=== PATIENT | female | born 1960 | race African-American/Black ===

== ENCOUNTER 2016-11-02 09:32 | Observation (INO) ==
[2016-11-02] MEDS ORDERED: ASPIRIN PO STA (09:37)
[2016-11-02 09:51] LABS: MANUAL DIFF NEEDED? NO
[2016-11-02 09:57] LABS: BASO% 0.4 % (0.0-0.8); EOS# 0.07 X1000 (0.0-0.7); EOS% 0.7 % (0.0-10.0); HEMATOCRIT 43.5 % (37.0-47.0); HEMOGLOBIN 14.8 g/dL (12.0-16.0); IMM GRAN# 0.01 X1000 (0.0-0.04); IMM GRAN% 0.1 % (0.0-0.5); LYMPH# 2.85 X1000 (1.2-3.4); LYMPH% 27.8 % (20.5-51.1); MCV 88.2 FL (81-99); MONO# 0.89 X1000 (0.11-0.59); MONO% 8.7 % (1.7-9.3); NEUT% 62.3 % (42.2-75.2); PLT 404 X1000 (130-400); RBC 4.93 XMIL (4.2-5.4)
--- NOTE | 2016-11-02 10:02 | EKG Report ---
Test Performed on : 11/02/2016 09:43:27 AM Test Reason : SYNCOPE Blood Pressure : / mmHG Vent. Rate : 068 BPM Atrial Rate : 068 BPM P-R Int : 162 ms QRS Dur : 082 ms QT Int : 408 ms P-R-T Axes : 068 052 042 degrees QTc Int : 433 ms Normal sinus rhythm. Possible Left atrial enlargement Borderline ECG No previous ECGs available Unconfirmed Result
--- NOTE | 2016-11-02 10:04 | Diag Imaging Result Doc PS360 ---
EXAM: CHEST-2 VIEWS HISTORY: Chest pain COMMENT: There is no evidence of acute cardiac or pulmonary disease. No previous studies are available for comparison. There is a small calcified granuloma in the lateral left lower lobe. IMPRESSION: No acute abnormality. Electronically signed by Francis Gonzalez 11/02/2016 10:01 AM
[2016-11-02 10:13] LABS: INR 0.91 (0.86-1.15); PROTIME 12.6 Seconds (12.1-15.5)
[2016-11-02 10:14] LABS: PTT PL 27.5 Seconds (22.6-43.9)
[2016-11-02 10:17] LABS: AGAP 14; ALBUMIN 4.3 g/dL (3.5-5.0); ALKALINE PHOSPHATASE 104 U/L (32-104); BUN 9 mg/dL (8-22); CALCIUM 9.9 mg/dL (8.8-10.2); CHLORIDE 94 mmol/L (98-107); CK PROFILE 76 U/L (24-173); COSMO 280; GOT 18 U/L (10-30); GPT 12 U/L (10-36); MAGNESIUM 2.3 mg/dL (1.5-2.7); POTASSIUM 3.4 mmol/L (3.5-5.1); SODIUM 134 mmol/L (136-145); TCO2 26 mmol/L (25-35); TOTAL PROTEIN 8.3 g/dL (6.3-8.3)
--- NOTE | 2016-11-02 11:11 | PROVIDER DOCUMENTATION ---
This chart was entered by Hamzah Rosas Scribe, acting as scribe for Juan Luis Arellano MD. HPI-Syncope/Dizziness - General Chief Complaint: Syncope Time Seen by Provider: 11/02/16 09:49 Source: patient Allergies/Adverse Reactions: Patient Allergies Allergy/AdvReac Type Severity Reaction Status Date / Time acetaminophen [From Lortab] Allergy ITCHING Verified 11/02/16 09:36 hydrocodone bitartrate * Allergy ITCHING Verified 11/02/16 09:36 [From Lortab] hydrocortisone Allergy RASH Verified 11/02/16 09:36 morphine Allergy RASH Verified 11/02/16 09:36 Penicillins Allergy SHORTNESS Verified 11/02/16 09:36 OF BREATH Sulfa (Sulfonamide Allergy RASH Verified 11/02/16 09:36 Antibiotics) Home Medications: Home Medication List Medication Instructions Recorded Confirmed Last Taken Type Metformin [Glucophage] 1,000 mg PO BID 07/22/14 11/02/16 09/07/16 20:00 History SIMVAstatin [Zocor] 20 mg PO DAILY 07/22/14 11/02/16 09/07/16 20:00 History Buspirone [Buspar] 7.5 mg PO BID 09/02/16 11/02/16 09/07/16 08:00 History Esomeprazole [Nexium] 20 mg PO DAILY 09/02/16 11/02/16 09/07/16 08:00 History Hydrochlorothiazide 25 mg PO DAILY 09/02/16 11/02/16 09/07/16 08:00 History Insulin Aspart [Novolog] 1 unit SQ DIRECTED 09/02/16 11/02/16 09/07/16 History Insulin Degludec [Tresiba 30 unit SQ QHS 09/02/16 11/02/16 09/06/16 History Flextouch U-100] Amlodipine Besylate 10 mg PO DAILY 09/08/16 11/02/16 09/07/16 20:00 History Losartan Potassium 100 mg PO DAILY 09/08/16 11/02/16 09/07/16 08:00 History Potassium Chloride E.r. [Klor-Con] 10 meq PO DAILY 09/08/16 11/02/16 09/07/16 08 :00 History - History of Present Illness-Syncope/Dizzy Nature of Presenting Problem: patient is a 55 y/o F that presents to the ER with syncope. Patient was in supply room at work when she got lightheaded and passed out. She reports now feeling her normal. She denies chest pain or palpitations. Reports similar symptoms in past due to elevated Blood sugar. She did eat her normal breakfast this am. If witnessed syncope, by whom?: co-worker Prior Episodes: reports: single episode today Onset/Duration: reports: abrupt, just prior to arrival Timing: reports: gone now Position/Activity at time of episode: reports: standing Symptoms prior to episode: reports: lightheaded. denies: chest pain, racing heart, abdominal pain, diaphoresis, recent head trauma, rapid heart beat Context: reports: lost consciousness, became unresponsive Loss of Consciousness: brief (seconds) Location of injury. (If syncope resulted in an injury.): reports: none Current Symptoms: reports: none/feels normal Similar symptoms previously: reports: workup for same problem Recently Seen Here or By Another Healthcare Provider: No Review of Systems - Adult - REVIEW OF SYSTEMS - ADULT Constitutional: denies: chills, fever, fatique Eyes: reports: no symptoms reported Ears, Nose, Mouth & Throat: reports: no symptoms reported Cardiovascular: reports: syncope. denies: chest pain, orthopnea, palpitations Respiratory: denies: cough, shortness of breath, wheezing Gastrointestinal: denies: abdominal pain, nausea, vomiting Genitourinary: reports: no symptoms reported Musculoskeletal: denies: back pain, joint pain, neck pain Integumentary: reports: no symptoms reported Neurological: reports: dizziness/vertigo, syncope. denies: headache/migraines, seizure Psychiatric: reports: no symptoms reported Endocrine: reports: no symptoms reported Hematologic/Lymphatic: reports: no symptoms reported Allergic/Immunologic: reports: no symptoms reported All Other Systems: Reviewed and Negative Past History - Adult - PAST MEDICAL HISTORY-ADULT Review of Records: reports: Old Records Reviewed, Nursing Assessment Review, Medications Reviewed Cardiovascular: reports: HTN, hyperlipidemia Gastrointestinal: reports: GERD Endocrine/Immune: reports: Diabetes - PRIOR SURGERIES/PROCEDURES Surgical/Procedure History: reports: hysterectomy, orthopedic (extremity) - IMMUNIZATION STATUS Childhood Immunizations: See Nurse Assessment Flu Vaccine: UTD - FAMILY HISTORY Family History: reviewed, not pertinent - SOCIAL HISTORY Smoking: cigarettes, less than 1 pack/day Living Situation: family Physical Exam-General - PHYSICAL EXAM-ADULT Initial Vital Signs Reviewed: Yes - CONSTITUTIONAL General Appearance: alert, no apparent distress - EYES Eyes: PERRL/EOMI, pink conjunctivae - HEAD, EARS, NOSE, MOUTH & THROAT HENMT: normocephalic/atraumatic, moist mucous membranes, normal ENT inspection, pharynx normal - NECK Neck: full range of motion, normal inspection - RESPIRATORY Respiratory: lungs clear, normal breath sounds, no respiratory distress, no accessory muscle use - CARDIOVASCULAR Cardiovascular: regular rate, rhythm, no edema, no murmur - GASTROINTESTINAL (ABDOMEN) Abdominal Exam: normal bowel sounds, non tender, soft, no organomegaly, no pulsatile mass - MUSCULOSKELETAL Back Exam: normal inspection, no CVA tenderness Extremity: normal range of motion, normal inspection, no pedal edema - SKIN Integumentary: normal color, warm/dry - NEUROLOGIC 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, no motor/sensory deficits - PSYCHIATRIC Psych/Mental Status: normal mood/affect, normal thought content, normal thought process, oriented x 3 Progress - PLAN OF CARE/RESULTS Progress/Plan/Lab Results: Vital Signs - 8 hr 11/02/16 09:33 11/02/16 10:55 Temperature 97.8 F Pulse Rate 74 Pulse Rate [Sitting] 89 Pulse Rate [Standing] 91 H Pulse Rate [Supine] 87 Respiratory Rate 15 Blood Pressure 178/75 Blood Pressure [Sitting] 125/75 Blood Pressure [Standing] 123/73 Blood Pressure [Supine] 130/79 O2 Sat by Pulse Oximetry 100 Laboratory Results - last 24 hr 11/02/16 11/02/16 11/02/16 09:50 09:50 09:50 WBC RBC Hgb Hct MCV MCH MCHC RDW Std Deviation Plt Count MPV Immature Gran % (Auto) Neut % (Auto) Lymph % (Auto) [place] % (Auto) Eos % (Auto) Baso % (Auto) Immature Gran # (Auto) Neut # (Auto) Lymph # (Auto) [place] # (Auto) Eos # (Auto) Baso # (Auto) PT INR APTT (Factor Assay) D-Dimer Sodium 134 L Potassium 3.4 L Chloride 94 L Carbon Dioxide 26 Anion Gap 14 BUN 9 Creatinine 0.8 Estimated GFR/1.73 m2 > 60 BUN/Creatinine Ratio 11 Glucose 335 H Calculated Osmolality 280 Calcium 9.9 Magnesium 2.3 Total Bilirubin 0.30 AST 18 ALT 12 Alkaline Phosphatase 104 Creatine Kinase 76 Troponin T < 0.010 Fko-B-Kkqdzmsvuoo Pept 13 Total Protein 8.3 Albumin 4.3 Globulin 4.0 Albumin/Globulin Ratio 1.0 11/02/16 11/02/16 09:50 09:50 WBC 10.26 RBC 4.93 Hgb 14.8 Hct 43.5 MCV 88.2 MCH 30.0 MCHC 34.0 RDW Std Deviation 13.0 Plt Count 404 H MPV 9.0 Immature Gran % (Auto) 0.1 Neut % (Auto) 62.3 Lymph % (Auto) 27.8 [place] % (Auto) 8.7 Eos % (Auto) 0.7 Baso % (Auto) 0.4 Immature Gran # (Auto) 0.01 Neut # (Auto) 6.40 Lymph # (Auto) 2.85 [place] # (Auto) 0.89 H Eos # (Auto) 0.07 Baso # (Auto) 0.04 PT 12.6 INR 0.91 APTT (Factor Assay) 27.5 D-Dimer 0.30 Sodium Potassium Chloride Carbon Dioxide Anion Gap BUN Creatinine Estimated GFR/1.73 m2 BUN/Creatinine Ratio Glucose Calculated Osmolality Calcium Magnesium Total Bilirubin AST ALT Alkaline Phosphatase Creatine Kinase Troponin T Xgj-L-Zxfbnztrsji Pept Total Protein Albumin Globulin Albumin/Globulin Ratio Orders Category Date Time Status Cardiac Monitoring DIRECTED Care 11/02/16 09:38 Active ED: Orthostatic Vital Signs (E as directed Care 11/02/16 10:17 Active Oxygen Therapy- ED Nursing DIRECTED Care 11/02/16 09:38 Active Saline Loc NOW Care 11/02/16 09:38 Active CHEST-2 VIEWS [RAD] Stat Exams 11/02/16 09:38 Completed CBC WITH ELECTRONIC DIFF [HEME] Stat Lab 11/02/16 09:50 Completed CK PROFILE [SP CHEM] Stat Lab 11/02/16 09:50 Completed COMPREHENSIVE METABOLIC PANEL [CHEM] Stat Lab 11/02/16 09:50 Completed D-DIMER PL [COAG] Stat Lab 11/02/16 09:50 Completed MAGNESIUM [CHEM] Stat Lab 11/02/16 09:50 Completed PRO B-NATRIURETIC PEPTIDE Stat Lab 11/02/16 09:50 Completed PROTIME WITH INR PL [COAG] Stat Lab 11/02/16 09:[address] [COAG] Stat Lab 11/02/16 09:50 Completed TROPONIN T Stat Lab 11/02/16 09:50 Completed Aspirin Med 11/02/16 09:37 Discontinued 325 mg PO STAT STA EKG [EKG] Stat Ther 11/02/16 09:38 Draft Result Diagrams: 11/02/16 09:50 11/02/16 09:50 - REASSESSMENT Reassessment #1 Time Reassessed: 11:07 (no sx now) Status: improving - EKG 1 Time of EKG reading by physician:: 09:43 EKG Read and Signed by:: Juan Luis Arellano EKG Interpretation (*Must complete 3 of following elements*): Abnormal Rate: 68 Rhythm: NSR [place]: normal MS Interval: normal ST Wave: normal Comments: LAE - XRAY 1 XRAY Study: Chest Impression: Normal XRAY Interpretation: NAD Departure - Departure Time of Disposition Decision: 11:09 DIAGNOSIS: Hyperglycemia due to type 1 diabetes mellitus Syncope Qualifiers: Syncope type: unspecified Qualified Code(s): R55 - Syncope and collapse Disposition: HOME 01 Certified Medical Emergency: Emergent Condition: Fair Additional Freetext Instructions: ED Follow Up Instructions: You have been treated by a care provider in the Emergency Department. These instructions are being provided to you so you can have an understanding of how to care for yourself upon discharge. Upon discharge from the Emergency Department, you are responsible for making arrangements for follow-up care by a physician of your choice. Take all prescribed medications as directed. Return to the Emergency Department immediately for any new or worsening symptoms. You may call the Physician Referral phone number at [phone] to obtain a list of Physicians who are taking new patients. Discharge Education: Syncope - Critical Care Note This patient required my direct & personal management of CC.: No This chart was documented by the indicated scribe, (Hamzah Rosas, Elliibe) and accurately reflects the services I performed and decisions made by me, Juan Luis Arellano MD, as attested by the provider's signature.
[2016-11-02] MEDS ORDERED: NS 1,000 ML IV ONE (11:59)
--- NOTE | 2016-11-02 13:07 | Diag Imaging Result Doc PS360 ---
HEAD W/O CONTRAST - 11/02/2016 INDICATION: Syncope COMPARISON: None FINDINGS: The ventricles and sulci are normal in size and contour. No intracranial mass or hemorrhage. The skull is intact. The sinuses mastoids and middle ears are clear. IMPRESSION: Negative exam. Electronically signed by Bud Apodaca 11/02/2016 1:04 PM
[2016-11-02] MEDS ORDERED: NS 1,000 ML ONE ×2 (14:00)
--- NOTE | 2016-11-02 14:03 | PROVIDER DOCUMENTATION ---
This chart was entered by Hamzah Rosas Scribe, acting as scribe for Juan Luis Arellano MD. HPI-Syncope/Dizziness - General Chief Complaint: Syncope Time Seen by Provider: 11/02/16 09:49 Source: patient Allergies/Adverse Reactions: Patient Allergies Allergy/AdvReac Type Severity Reaction Status Date / Time acetaminophen [From Lortab] Allergy ITCHING Verified 11/02/16 09:36 hydrocodone bitartrate * Allergy ITCHING Verified 11/02/16 09:36 [From Lortab] hydrocortisone Allergy RASH Verified 11/02/16 09:36 morphine Allergy RASH Verified 11/02/16 09:36 Penicillins Allergy SHORTNESS Verified 11/02/16 09:36 OF BREATH Sulfa (Sulfonamide Allergy RASH Verified 11/02/16 09:36 Antibiotics) Home Medications: Home Medication List Medication Instructions Recorded Confirmed Last Taken Type Metformin [Glucophage] 1,000 mg PO BID 07/22/14 11/02/16 09/07/16 20:00 History SIMVAstatin [Zocor] 20 mg PO DAILY 07/22/14 11/02/16 09/07/16 20:00 History Buspirone [Buspar] 7.5 mg PO BID 09/02/16 11/02/16 09/07/16 08:00 History Esomeprazole [Nexium] 20 mg PO DAILY 09/02/16 11/02/16 09/07/16 08:00 History Hydrochlorothiazide 25 mg PO DAILY 09/02/16 11/02/16 09/07/16 08:00 History Insulin Aspart [Novolog] 1 unit SQ DIRECTED 09/02/16 11/02/16 09/07/16 History Insulin Degludec [Tresiba 30 unit SQ QHS 09/02/16 11/02/16 09/06/16 History Flextouch U-100] Amlodipine Besylate 10 mg PO DAILY 09/08/16 11/02/16 09/07/16 20:00 History Losartan Potassium 100 mg PO DAILY 09/08/16 11/02/16 09/07/16 08:00 History Potassium Chloride E.r. [Klor-Con] 10 meq PO DAILY 09/08/16 11/02/16 09/07/16 08 :00 History - History of Present Illness-Syncope/Dizzy Nature of Presenting Problem: patient was d/c from Er, She was in the bathroom when she began to jerk in the arms and body. She went to open door and was in floor. patient had syncopal episode this am. Denies chest pain with both episodes or palpitations. Prior Episodes: reports: multiple episodes today Onset/Duration: reports: abrupt, just prior to arrival Timing: reports: gone now Position/Activity at time of episode: reports: activity Symptoms prior to episode: reports: lightheaded, other (jerky) Context: reports: lost consciousness Loss of Consciousness: brief (seconds) Location of injury. (If syncope resulted in an injury.): reports: none Current Symptoms: reports: none/feels normal Similar symptoms previously: reports: previous diagnosis, tests, workup for same problem Recently Seen Here or By Another Healthcare Provider: Yes (just d/c from the ER) Review of Systems - Adult - REVIEW OF SYSTEMS - ADULT Constitutional: denies: chills, fever Eyes: denies: decreased vision, blurred vision, double vision Ears, Nose, Mouth & Throat: denies: ear pain, sinus problem, throat pain, throat swelling Cardiovascular: reports: syncope. denies: chest pain, palpitations Respiratory: denies: shortness of breath Gastrointestinal: denies: abdominal pain, diarrhea, nausea, vomiting Genitourinary: denies: dysuria, frequency, hematuria, incontinence Musculoskeletal: denies: back pain, joint pain, neck pain Integumentary: reports: no symptoms reported Neurological: reports: dizziness/vertigo, syncope, tremors. denies: headache/ migraines Psychiatric: reports: no symptoms reported Endocrine: reports: no symptoms reported Hematologic/Lymphatic: reports: no symptoms reported Allergic/Immunologic: reports: no symptoms reported All Other Systems: Reviewed and Negative Past History - Adult - PAST MEDICAL HISTORY-ADULT Review of Records: reports: Old Records Reviewed, Nursing Assessment Review, Medications Reviewed Cardiovascular: reports: HTN, hyperlipidemia Gastrointestinal: reports: GERD Endocrine/Immune: reports: Diabetes - PRIOR SURGERIES/PROCEDURES Surgical/Procedure History: reports: hysterectomy, orthopedic (extremity) - IMMUNIZATION STATUS Childhood Immunizations: See Nurse Assessment Flu Vaccine: UTD - FAMILY HISTORY Family History: reviewed, not pertinent - SOCIAL HISTORY Smoking: cigarettes, less than 1 pack/day Living Situation: family Physical Exam-General - PHYSICAL EXAM-ADULT Initial Vital Signs Reviewed: Yes - CONSTITUTIONAL General Appearance: alert, no apparent distress, anxious - EYES Eyes: PERRL/EOMI, pink conjunctivae - HEAD, EARS, NOSE, MOUTH & THROAT HENMT: normocephalic/atraumatic, moist mucous membranes, normal ENT inspection - NECK Neck: full range of motion, normal inspection - RESPIRATORY Respiratory: chest non-tender, lungs clear, normal breath sounds, no respiratory distress, no accessory muscle use - CARDIOVASCULAR Cardiovascular: normal peripheral pulses, regular rate, rhythm, no murmur - GASTROINTESTINAL (ABDOMEN) Abdominal Exam: normal bowel sounds, non tender, soft, no organomegaly, no pulsatile mass - MUSCULOSKELETAL Extremity: normal range of motion, normal inspection, no calf tenderness, normal capillary refill, pelvis stable - SKIN Integumentary: normal color, normal turgor, warm/dry - NEUROLOGIC 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, no motor/sensory deficits - PSYCHIATRIC Psych/Mental Status: normal thought process, oriented x 3, anxious Progress - PLAN OF CARE/RESULTS Progress/Plan/Lab Results: Vital Signs - 8 hr 11/02/16 09:33 11/02/16 10:55 11/02/16 11:24 Temperature 97.8 F 97.8 F Pulse Rate 74 87 Pulse Rate [Sitting] 89 Pulse Rate [Standing] 91 H Pulse Rate [Supine] 87 Respiratory Rate 15 19 Blood Pressure 178/75 124/73 Blood Pressure [Sitting] 125/75 Blood Pressure [Standing] 123/73 Blood Pressure [Supine] 130/79 O2 Sat by Pulse Oximetry 100 99 Laboratory Results - last 24 hr 11/02/16 11/02/16 11/02/16 09:50 09:50 09:50 WBC RBC Hgb Hct MCV MCH MCHC RDW Std Deviation Plt Count MPV Immature Gran % (Auto) Neut % (Auto) Lymph % (Auto) [place] % (Auto) Eos % (Auto) Baso % (Auto) Immature Gran # (Auto) Neut # (Auto) Lymph # (Auto) [place] # (Auto) Eos # (Auto) Baso # (Auto) PT INR APTT (Factor Assay) D-Dimer Sodium 134 L Potassium 3.4 L Chloride 94 L Carbon Dioxide 26 Anion Gap 14 BUN 9 Creatinine 0.8 Estimated GFR/1.73 m2 > 60 BUN/Creatinine Ratio 11 Glucose 335 H Calculated Osmolality 280 Calcium 9.9 Magnesium 2.3 Total Bilirubin 0.30 AST 18 ALT 12 Alkaline Phosphatase 104 Creatine Kinase 76 Troponin T < 0.010 Cix-V-Klzgypihexb Pept 13 Total Protein 8.3 Albumin 4.3 Globulin 4.0 Albumin/Globulin Ratio 1.0 11/02/16 11/02/16 11/02/16 09:50 09:50 12:22 WBC 10.26 RBC 4.93 Hgb 14.8 Hct 43.5 MCV 88.2 MCH 30.0 MCHC 34.0 RDW Std Deviation 13.0 Plt Count 404 H MPV 9.0 Immature Gran % (Auto) 0.1 Neut % (Auto) 62.3 Lymph % (Auto) 27.8 [place] % (Auto) 8.7 Eos % (Auto) 0.7 Baso % (Auto) 0.4 Immature Gran # (Auto) 0.01 Neut # (Auto) 6.40 Lymph # (Auto) 2.85 [place] # (Auto) 0.89 H Eos # (Auto) 0.07 Baso # (Auto) 0.04 PT 12.6 INR 0.91 APTT (Factor Assay) 27.5 D-Dimer 0.30 Sodium Potassium Chloride Carbon Dioxide Anion Gap BUN Creatinine Estimated GFR/1.73 m2 BUN/Creatinine Ratio Glucose Calculated Osmolality Calcium Magnesium Total Bilirubin AST ALT Alkaline Phosphatase Creatine Kinase Troponin T < 0.010 Lrb-T-Ajbzdfcworj Pept Total Protein Albumin Globulin Albumin/Globulin Ratio Orders Category Date Time Status Cardiac Monitoring DIRECTED Care 11/02/16 09:38 Active ED: Orthostatic Vital Signs (E as directed Care 11/02/16 10:17 Active Oxygen Therapy- ED Nursing DIRECTED Care 11/02/16 09:38 Active Saline Loc NOW Care 11/02/16 09:38 Active CHEST-2 VIEWS [RAD] Stat Exams 11/02/16 09:38 Completed HEAD W/O CONTRAST [CT] Stat Exams 11/02/16 11:58 Completed CBC WITH ELECTRONIC DIFF [HEME] Stat Lab 11/02/16 09:50 Completed CK PROFILE [SP CHEM] Stat Lab 11/02/16 09:50 Completed COMPREHENSIVE METABOLIC PANEL [CHEM] Stat Lab 11/02/16 09:50 Completed D-DIMER PL [COAG] Stat Lab 11/02/16 09:50 Completed MAGNESIUM [CHEM] Stat Lab 11/02/16 09:50 Completed PRO B-NATRIURETIC PEPTIDE Stat Lab 11/02/16 09:[address] Com[address]IME WITH INR PL [COAG] Stat Lab 11/02/16 09:[address] [COAG] Stat Lab 11/02/16 09:50 Completed TROPONIN T Stat Lab 11/02/16 09:50 Completed TROPONIN T Stat Lab 11/02/16 12:22 Completed 0.9% Sodium Chloride Inj [Ns] 1,000 ml Med 11/02/16 11:59 Active IV 125 mls/hr Aspirin Med 11/02/16 09:37 Discontinued 325 mg PO STAT STA EKG [EKG] Stat Ther 11/02/16 09:38 Draft Vital Signs Temp Pulse Pulse Pulse Pulse Resp BP 11/02/16 11:24 97.8 F 87 19 124/73 11/02/16 10:55 89 91 H 87 11/02/16 09:33 97.8 F 74 15 178/75 BP BP BP Pulse Ox 11/02/16 11:24 99 11/02/16 10:55 125/75 123/73 130/79 11/02/16 09:33 100 acetaminophen [From Lortab] Allergy (Verified 11/02/16 09:36) ITCHING hydrocodone bitartrate * [From Lortab] Allergy (Verified 11/02/16 09:36) ITCHING hydrocortisone Allergy (Verified 11/02/16 09:36) RASH morphine Allergy (Verified 11/02/16 09:36) RASH Penicillins Allergy (Verified 11/02/16 09:36) SHORTNESS OF BREATH Sulfa (Sulfonamide Antibiotics) Allergy (Verified 11/02/16 09:36) RASH Metformin [Glucophage] 1,000 mg PO BID 07/22/14 SIMVAstatin [Zocor] 20 mg PO DAILY 07/22/14 Buspirone [Buspar] 7.5 mg PO BID 09/02/16 Esomeprazole [Nexium] 20 mg PO DAILY 09/02/16 Hydrochlorothiazide 25 mg PO DAILY 09/02/16 Insulin Aspart [Novolog] 1 unit SQ DIRECTED 09/02/16 Insulin Degludec [Tresiba Flextouch U-100] 30 unit SQ QHS 09/02/16 Amlodipine Besylate 10 mg PO DAILY 09/08/16 Losartan Potassium 100 mg PO DAILY 09/08/16 Potassium Chloride E.r. [Klor-Con] 10 meq PO DAILY 09/08/16 Laboratory 11/02/16 11/02/16 11/02/16 12:22 09:50 09:50 WBC 10.26 RBC 4.93 Hgb 14.8 Hct 43.5 MCV 88.2 MCH 30.0 MCHC 34.0 RDW Std Deviation 13.0 Plt Count 404 H MPV 9.0 Immature Gran % (Auto) 0.1 Neut % (Auto) 62.3 Lymph % (Auto) 27.8 [place] % (Auto) 8.7 Eos % (Auto) 0.7 Baso % (Auto) 0.4 Immature Gran # (Auto) 0.01 Neut # (Auto) 6.40 Lymph # (Auto) 2.85 [place] # (Auto) 0.89 H Eos # (Auto) 0.07 Baso # (Auto) 0.04 PT 12.6 INR 0.91 APTT (Factor Assay) 27.5 D-Dimer 0.30 Sodium Potassium Chloride Carbon Dioxide Anion Gap BUN Creatinine Estimated GFR/1.73 m2 BUN/Creatinine Ratio Glucose Calculated Osmolality Calcium Magnesium Total Bilirubin AST ALT Alkaline Phosphatase Creatine Kinase Troponin T < 0.010 Apg-R-Zoryzoyqhjs Pept Total Protein Albumin Globulin Albumin/Globulin Ratio 11/02/16 11/02/16 11/02/16 09:50 09:50 09:50 WBC RBC Hgb Hct MCV MCH MCHC RDW Std Deviation Plt Count MPV Immature Gran % (Auto) Neut % (Auto) Lymph % (Auto) [place] % (Auto) Eos % (Auto) Baso % (Auto) Immature Gran # (Auto) Neut # (Auto) Lymph # (Auto) [place] # (Auto) Eos # (Auto) Baso # (Auto) PT INR APTT (Factor Assay) D-Dimer Sodium 134 L Potassium 3.4 L Chloride 94 L Carbon Dioxide 26 Anion Gap 14 BUN 9 Creatinine 0.8 Estimated GFR/1.73 m2 > 60 BUN/Creatinine Ratio 11 Glucose 335 H Calculated Osmolality 280 Calcium 9.9 Magnesium 2.3 Total Bilirubin 0.30 AST 18 ALT 12 Alkaline Phosphatase 104 Creatine Kinase 76 Troponin T < 0.010 Yls-J-Foaqcejcgdh Pept 13 Total Protein 8.3 Albumin 4.3 Globulin 4.0 Albumin/Globulin Ratio 1.0 Result Diagrams: 11/02/16 09:50 11/02/16 09:50 - CT/MRI 1 CT Study: Head Impression: Normal CT Results: negative - CONSULTS/PCP/HOSPITALIST Notification #1 *Consult/PCP/Hospitalist*: ( strategic planning consultant for hospitalist) Time Discussed: 13:59 Consult Disposition: Admit Departure - Departure Time of Disposition Decision: 14:02 DIAGNOSIS: Hyperglycemia due to type 1 diabetes mellitus Syncope Qualifiers: Syncope type: unspecified Qualified Code(s): R55 - Syncope and collapse Disposition: ADMITTED INPATIENT 09 Certified Medical Emergency: Emergent Condition: Fair Additional Freetext Instructions: ED Follow Up Instructions: You have been treated by a care provider in the Emergency Department. These instructions are being provided to you so you can have an understanding of how to care for yourself upon discharge. Upon discharge from the Emergency Department, you are responsible for making arrangements for follow-up care by a physician of your choice. Take all prescribed medications as directed. Return to the Emergency Department immediately for any new or worsening symptoms. You may call the Physician Referral phone number at [phone] to obtain a list of Physicians who are taking new patients. Referrals and Follow-Ups: Wendy Rivera MD [Primary Care Provider] - Work Excuses: Return to School/Parent Work Discharge Education: Syncope - Critical Care Note This patient required my direct & personal management of CC.: No This chart was documented by the indicated scribe, (Hamzah Rosas, Scribe) and accurately reflects the services I performed and decisions made by me, Juan Luis Arellano MD, as attested by the provider's signature.
[2016-11-02] MEDS ORDERED: TYLENOL PO PRN (15:05)
[2016-11-02] MEDS: HUMULIN R (PARKWAY) SUBQ SCH ×2 (15:35→21:06)
[2016-11-02] MEDS: TYLENOL PO PRN (16:28)
--- NOTE | 2016-11-02 17:47 | HISTORY AND PHYSICAL ---
CHIEF COMPLAINT: Seizure. 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 She stated that she felt lightheaded and the next thing she knew she was on the floor. She has had these episodes before, they have never been evaluated. Many times her blood sugar was elevated. She states she took her normal medicines and ate her normal breakfast. Co-worker that was standing with the patient, stated that she had no seizure activity, no incontinence. No visible injuries. On arrival to the emergency room, she was alert and oriented with no complaint. Troponins were negative on multiple occasions. Blood sugar was 335 on arrival, it was 148 on recheck. As her ER was negative , and the patient felt at her normal, she was discharged from the emergency room. According to the chart, after signing all papers, the patient was going to use the restroom before leaving, and she felt herself get lightheaded, feeling like she was going to pass out. So she opened the door, and sat on the floor. She stated she did not lose consciousness. She denied any palpitations, nausea, vomiting, shortness of breath, chest pain during these episodes. As soon as both ended, she felt back to her norm. CT of the head was performed after the 2nd episode which revealed no acute processes. She is being admitted for further evaluation and treatment. PAST MEDICAL HISTORY: Hypertension, diabetes type 1. Gastroesophageal reflux disease. PAST SURGICAL HISTORY: Hysterectomy. SOCIAL HISTORY: She smokes about half pack a day. She denies alcohol or illicit drug use. ALLERGIES: Codeine, Lortab which caused itching. Hydrocortisone, morphine and sulfa, which cause a rash. Penicillin causes shortness of breath. HOME MEDICATIONS: A list will be obtained. REVIEW OF SYSTEMS: A 14-point review of systems is discussed with patient with pertinent positives stated in the HPI. She denied chest pain, palpitations, nausea, vomiting, diarrhea, constipation, change in vision, change in hearing. PHYSICAL EXAMINATION: GENERAL: This is a 55-year-old, female, who is sitting up in the bed eating in no distress. VITAL SIGNS: Blood pressure is 122/67 with a heart rate of 59, respirations are 18, temperature is 98.3 oral with oxygen saturations of 100% on room air. CARDIOVASCULAR: Regular rate and rhythm. No rubs, murmurs, or gallops appreciated. PULMONARY: Breath sounds are clear with no increased work of breathing noted. GASTROINTESTINAL: Soft, nontender, nondistended with bowel sounds in all 4 quadrants. MUSCULOSKELETAL: Good range of motion of joints. EXTREMITIES: No clubbing, cyanosis, or edema. Calves are nontender. Pulses are palpable x4. NEUROLOGIC: She is alert and oriented x3. Speech is clear. Forehead is spared. She has no facial droop. No tongue or uvula deviation. Shoulder shrug is equal. 5/5 muscle strength times all 4 extremities. Her gait is normal. She has good medical staff specialist. DIAGNOSTICS: CT of the head revealed no acute processes. Chest x-ray revealed no acute abnormality. LABS: WBC is 10.2 with hemoglobin 14.8, hematocrit 43.5, and platelets of 404. Sodium is 134, potassium 3.4, BUN 9, creatinine 0.8, with a glucose ranging 148-335. Troponins are negative on multiple occasions. ASSESSMENT: 1. Syncopal episode, witnessed. 2. Diabetes type 1 with hyperglycemia. 3. Hypertension. 4. Gastroesophageal reflux disease. 5. Deep vein thrombosis prophylaxis and gastrointestinal prophylaxis. PLAN: She will be admitted to the hospital. Placed on telemetry. trend chemistries as well as her troponins. Echocardiogram and carotid doppler in the morning. We will identify her home medications and continue as appropriate. For DVT prophylaxis, will use SCDs and for GI prophylaxis Protonix. Further treatments pending hospital course. Dictated by SHAHZAD Ordaz for Damien Barrientos MD cc: SHAHZAD Ordaz MD [facility]ITAL[facility]erson
[2016-11-02] MEDS ORDERED: INSULIN PEN NEEDLES ONE (20:57)
[2016-11-02] MEDS ORDERED: ZOCOR PO SCH (21:00)
[2016-11-02] MEDS ORDERED: INSULIN DEGLUDEC 30 UNIT SQ SCH (21:00)
[2016-11-02] MEDS ORDERED: ASPIRIN EC PO SCH (21:00)
[2016-11-03] MEDS: TYLENOL PO PRN ×2 (01:23→09:04)
[2016-11-03] MEDS: HUMULIN R (PARKWAY) SUBQ SCH ×2 (06:20→11:24)
[2016-11-03 06:49] LABS: AGAP 11; BUN 9 mg/dL (8-22); CALCIUM 9.1 mg/dL (8.8-10.2); CHLORIDE 100 mmol/L (98-107); COSMO 278; POTASSIUM 4.2 mmol/L (3.5-5.1); SODIUM 139 mmol/L (136-145); TCO2 28 mmol/L (25-35)
[2016-11-03 07:00] LABS: HEMATOCRIT 43.1 % (37.0-47.0); HEMOGLOBIN 14.2 g/dL (12.0-16.0); MCH 29.4 PG (27-31); MCHC 32.9 g/dL (33-37); MCV 89.2 FL (81-99); MPV 9.3 FL (7.4-10.4); RBC 4.83 XMIL (4.2-5.4)
[2016-11-03] MEDS ORDERED: NEXIUM PO SCH (07:00)
[2016-11-03] MEDS ORDERED: FISH OIL CONCENTRATE PO SCH (09:00)
[2016-11-03] MEDS ORDERED: COZAAR PO SCH (09:00)
[2016-11-03] MEDS ORDERED: KLOR-CON PO SCH (09:00)
[2016-11-03] MEDS ORDERED: NORVASC PO SCH ×2 (09:00→21:00)
[2016-11-03] MEDS ORDERED: CLEOCIN PO ONE (14:47)
[2016-11-03 16:35] VITALS: BP 135/61
--- NOTE | 2016-11-04 06:40 | DISCHARGE SUMMARY ---
ADMISSION DATE: 11/02/2016 DISCHARGE DATE: 11/03/2016 PRIMARY CARE PHYSICIAN: Wendy Rivera MD DIAGNOSES: 1. Syncopal episode witnessed. 2. Diabetes type 1 with hyperglycemia. 3. Hypertension. 4. Gastroesophageal reflux disease. DIAGNOSTICS: Chest x-ray, 11/02/2016 revealed no acute abnormality. CT of the head, 11/02/2016 revealed negative exam. Ventricles and sulci are normal in size and contour. No intracranial mass or hemorrhage. Skull is intact. Sinuses, mastoids and middle ears are clear. HOSPITAL COURSE: Ms. Conroy presented to the emergency room after having a syncopal episode while at work. Reportedly, there was no seizure activity. No incontinence of stool or urine. She did wake with no postictal symptoms or residual. Workup was negative. She has had no further syncopal episodes. She has denied dizziness, palpitations. Echocardiogram and carotid Doppler are pending. PHYSICAL EXAMINATION: Cardiovascular: Regular rate and rhythm. S1 and S2 appreciated. Pulmonary: Breath sounds are clear with no increased work of breathing noted. Gastrointestinal: Soft, nontender, nondistended with bowel sounds in all 4 quadrants. Musculoskeletal: Good range of motion of joints. Neurologic: She is alert and oriented x3. DISCHARGE MEDICATIONS: Norvasc 10 mg p.o. at bedtime, aspirin 81 mg at bedtime, Tresiba insulin 30 units at bedtime, Zocor 20 mg at bedtime, Nexium 40 mg daily, Klor-Con 20 mEq daily, losartan 100 mg p.o. daily, BuSpar 7.5 b.i.d., Glucophage a 1000 b.i.d., hydrochlorothiazide 25 mg daily, NovoLog as directed, clindamycin 300 mg p.o. q.6 hours x7 days for report of dental abscess. The patient does have an area to her upper right tooth that she had had a recent abscess, and was unable to follow through with a dentist; therefore, we will give clindamycin and she has been instructed to follow up with her dentist or her primary care physician within this week. DISCHARGE VITAL SIGNS: Blood pressure is 120/67 with a heart rate of 62, respirations are 16, temperature is 98 degrees with oxygen saturation 98%. DISCHARGE ACTIVITY: As tolerated. DISCHARGE DIET: Diabetic. FOLLOWUP: She is to follow up with Dr. Rivera within the week. She needs to follow up with her dentist. She has been instructed to return to the emergency room for any more syncopal episodes, for fever, chills or increasing pain. She is being discharged home in stable condition with family members. Dictated by SHAHZAD Ordaz for Damien Barrientos MD cc: SHAHZAD Ordaz MD
--- NOTE | 2016-11-04 09:23 | ECHO REPORT ---
ORDER DATE: 11/02/2016 PRIMARY CARE PHYSICIAN: Dr. Barrientos INDICATION: Syncope. M-MODE MEASUREMENTS: Right ventricle: 3.3 cm. Left ventricle end diastole: 3.8 cm. Left ventricle end systole: 2.5 cm. Posterior wall: 1.3 cm. Interventricular septum: 1.3 cm. Left atrium: 3.6 cm. Aortic root: 2.8 cm. SUMMARY OF 2-DIMENSIONAL IMAGIN. Left ventricular function is normal. Ejection fraction is 69%. There is a mild degree of concentric LVH. 2. The right ventricle is slightly generous in size. Function is normal. 3. The aortic valve opens normally. There is no aortic stenosis. Color flow mapping of the aortic valve is unremarkable. 4. The mitral valve looks normal. Color flow mapping indicates a mild degree of regurgitation. 5. Pulse wave Doppler of mitral inflow is normal. 6. Tissue Doppler of septal and lateral mitral annulus averages 11 cm. 7. There is no diastolic dysfunction. 8. Pulmonary venous flow is normal. 9. The tricuspid valve shows a mild degree of regurgitation. 10.The inferior vena cava is not dilated. 11.Pulmonary pressure is estimated at 33 mmHg. 12.The pulmonic valve is normal with a mild degree of regurgitation. 13.There is no pericardial effusion and no sign of thrombus. SUMMARY: In summary, this study shows: 1. Normal left ventricular systolic function with ejection fraction of 69%. 2. Mild degree of mitral, tricuspid, and pulmonic regurgitation. 3. Normal aortic valve. 4. No diastolic dysfunction. 5. Pulmonary pressure is estimated at 33 mmHg. 6. There is a mild degree of concentric left ventricular hypertrophy. Clinical correlation is recommended. cc: MD Aliya Snyder CRNP
== END 2016-11-03 17:15 | disposition home or self-care (01) ==
LOC: P.ED 09:32 → P.MEDSURG 09:32 → P.ED 11:25
PROVIDERS: ATTEND Family Medicine